=== PATIENT | male | born 1995 | race Caucasian/White ===

== ENCOUNTER 2021-08-30 12:40 | Emergency (ER) | payer BC, OTHER ==
[~2021-08-30] VITALS: Ht 182.8 cm; Wt 113.0 kg
[~2021-08-30 12:40] MED LIST: ALPR0.5T PO; DICY20TA33 PO; DULO60CA6 PO; RT-ALBUINH IH; symbicort
[2021-08-30 13:14] VITALS: BP 122/82
--- NOTE | 2021-08-30 13:20 | ED Lower Extremity ---
General Chief Complaint: Lower Extremity Stated Complaint: R FOOT INJ Nursing Triage Note: PT ARRIVES TO ER WITH C/O R FOOT INJURY THAT HAPPENED LAST NIGHT. PT IS UNSURE WHAT HE DID BUT HE THINKS HE FELL SINCE HE HAS SCRAPES ON HIS ARMS. PT WAS INTOXICATED WHILE THIS HAPPENED. Source: patient Exam Limitations: no limitations History of Present Illness Date Seen by Provider: Aug 30, 2021 Time Seen by Provider: 13:00 Initial Comments Injured the right foot last night while intoxicated. Not sure what happened. Pain is from the dorsal aspect of the midfoot. He is here visiting from [place]. Onset: just prior to arrival Severity: moderate Pain/Injury Location: right foot Method of Injury: unknown Modifying Factors: Worse With Movement Allergies and Home Medications Allergies Coded Allergies: No Known Drug Allergies (Unverified , 02/08/16) Patient Home Medication List Home Medication List Reviewed: Yes Albuterol Sulfate (Proair Hfa) 8.5 Gm Hfa.aer.ad, 8.5 GM IH Q4H PRN for SHORT NESS OF BREATH, (Reported) Entered as Reported by: DUGLAS CHE on 02/08/16813 Alprazolam (Xanax) 0.5 Mg Tablet, 0.5 MG PO TID PRN for ANXIETY, (Reported) Entered as Reported by: DUGLAS CHE on 02/08/16812 Dicyclomine HCl (Bentyl) 20 Mg Tablet, 20 MG PO Q4H PRN for ABDOMINAL PAIN Prescribed by: LUIS ALBERTO BAEZ on 02/08/16926 Duloxetine HCl (Cymbalta) 60 Mg Capsule.dr, 60 MG PO DAILY, (Reported) Entered as Reported by: DUGLAS HCE on 02/08/16812 [symbicort] , BID, (Reported) Entered as Reported by: DUGLAS CHE on 02/08/16813 Review of Systems Constitutional: see HPI EENTM: see HPI Respiratory: no symptoms reported Cardiovascular: no symptoms reported Genitourinary: no symptoms reported Musculoskeletal: no symptoms reported Skin: no symptoms reported Psychiatric/Neurological: No Symptoms Reported Past Mntwutj-Edcwbc-Souuno Hx Seasonal Allergies Seasonal Allergies: Yes Past Medical History Asthma Physical Exam Vital Signs Vital Signs - First Documented 08/30/21 13:14 Temp 36.9 Pulse 108 Resp 18 B/P (MAP) 122/82 (95) Pulse Ox 97 O2 Delivery Room Air Capillary Refill : Less Than 3 Seconds Height, Weight, BMI Height: 6'" Weight: 189lbs. oz. 85.547000pq; 33.00 BMI Method:Stated General Appearance: WD/WN, no apparent distress HEENT: PERRL/EOMI, normal ENT inspection Respiratory: no respiratory distress, no accessory muscle use Gastrointestinal: normal bowel sounds, non tender Hips: bilateral hip non-tender, bilateral hip normal inspection, bilateral hip normal range of motion Legs: bilateral leg non-tender, bilateral leg normal inspection, bilateral leg normal range of motion Knees: bilateral knee non-tender, bilateral knee normal inspection, bilateral knee normal range of motion Ankles: bilateral ankle non-tender, bilateral ankle normal inspection, bilateral ankle normal range of motion Feet: left foot non-tender, left foot normal inspection, left foot normal range of motion; right foot pain, right foot soft tissue tenderness, right foot swelling Neurologic/Psychiatric: alert, normal mood/affect, oriented x 3 Skin: normal color, warm/dry Progress/Results/Core Measures Results/Orders My Orders Orders - NEHEMIAS DENNIS APRN Foot, Right, 3 View (08/30/21 13:18) Vital Signs/I&O 08/30/21 13:14 Temp 36.9 Pulse 108 Resp 18 B/P (MAP) 122/82 (95) Pulse Ox 97 O2 Delivery Room Air Blood Pressure Mean: 95 Departure Communication (Admissions) NAME: TRINH BOYKIN [facility] REC#: [id number] PT STATUS: REG ER : 1995 PHYSICIAN: NEHEMIAS DENNIS APRN ADMIT DATE: 08/30/21/ER Draft Date of Exam:08/30/21 FOOT, RIGHT, 3 VIEW EXAM: Right foot at 1:24 PM INDICATION: Foot pain 3 views were obtained. The previous right foot exam of 02/07/2015 failed to show any sign of an acute abnormality. However, on this exam, there is now a linear lucency extending transversely through the base of of the 5th metatarsal. This does suggest a nondisplaced fracture. There is also soft tissue edema in this area. No other fracture or acute bony abnormality is appreciated. The Lisfranc joint seems well maintained. IMPRESSION: There is a nondisplaced transverse fracture of the base of the 5th metatarsal. There is no acute bony abnormality noted otherwise. Dictated on workstation # [id number] Dict: 08/30/21 1338 Trans: 08/30/21 1349 [facility] [id number] Interpreted by: JEAN PATEL MD Electronically signed by: Kelley Primary Impression: Metacarpal bone fracture Disposition: HOME, SELF-CARE Condition: Stable Departure-Patient Inst. Decision time for Depature: 13:49 Referrals: NO,LOCAL PHYSICIAN (PCP/Family) Primary Care Physician Patient Instructions: Foot Fracture (DC) Add. Discharge Instructions: 1. Pain medication as directed. Elevate the foot is much as possible. Crutches as needed for pain with walking. Wear the walking shoe for the next 4 weeks. Follow-up with orthopedics or primary care once you return home. All discharge instructions reviewed with patient and/or family. Voiced understanding. Scripts Hydrocodone/Acetaminophen (Hydrocodone-Acetamin 5-325 mg) 1 Each Tablet 1 TAB PO Q4H PRN for PAIN-MODERATE (5-7), #14 TAB Prov: NEHEMIAS DENNIS APRN 08/30/21 NEHEMIAS DENNIS APRN Aug 30, 2021 13:19
--- NOTE | 2021-08-30 13:50 | Diagnostic Imaging Report ---
EXAM: Right foot at 1:24 PM INDICATION: Foot pain 3 views were obtained. The previous right foot exam of 02/07/2015 failed to show any sign of an acute abnormality. However, on this exam, there is now a linear lucency extending transversely through the base of of the 5th metatarsal. This does suggest a nondisplaced fracture. There is also soft tissue edema in this area. No other fracture or acute bony abnormality is appreciated. The Lisfranc joint seems well maintained. IMPRESSION: There is a nondisplaced transverse fracture of the base of the 5th metatarsal. There is no acute bony abnormality noted otherwise. Dictated by: Dictated on workstation # [id number]
[2021-08-30] MEDS ORDERED: ACHD5005 PO (14:13)
[2021-08-30] MEDS ORDERED: oxyCODONE/APAP 5/325MG (PERCOCET 5) TABLET PO ONE (14:15)
== END 2021-08-30 14:42 | disposition home or self-care (01) ==
LOC: EDUNIT# 12:40 → ER 12:41
DX: S92.354A Nondisplaced fracture of fifth metatarsal bone, right foot, initial encounter for closed fracture (principal); J45.909 Unspecified asthma, uncomplicated; Z79.899 Other long term (current) drug therapy; X58.XXXA Exposure to other specified factors, initial encounter
CPT/HCPCS: 73630; 99282